=== PATIENT | female | born 1965 | race Hispanic/Latino ===

== ENCOUNTER 2017-02-23 14:32 | Inpatient (IN) | payer MEDICAID ==
[2017-02-23 14:56] VITALS: BMI 26.9
[2017-02-23] MEDS ORDERED: Sodium Chloride 0.9% 1,000 ML IV ONE (15:03)
--- NOTE | 2017-02-23 15:08 | C.PDOC ---
History Of Present Illness 52 y/o female presents to ED sent by Dr. Cao for complaints of chills, back and groin pain with associated nausea and vomiting. Patient could be in possible opiates withdrawal. Patient has had multiple surgeries and was in a medical marijuana program for a couple of weeks to help with pain but cannot afford it anymore. Patient denies chills, fever, dizziness or any other complaints at this time. Time Seen by Provider: 02/23/17 15:01 Chief Complaint (Nursing): Back Pain History Per: Patient History/Exam Limitations: no limitations Onset/Duration Of Symptoms: Hrs Current Symptoms Are (Timing): Still Present Past Medical History Reviewed: Historical Data, Nursing Documentation, Vital Signs - Medical History PMH: Anxiety, Arthritis, Asthma, Back Problems, Depression, Diabetes, Fractures , Gastritis, Hypothyroidism - [facility] Procedures COLONOSCOPY (05/07/15) ESOPHAGOGASTRODUODENOSCOPY [EGD] W/CLOSED BIOPSY (04/16/15) INDIVID PSYCHOTHERAP NEC (10/28/14) OCCUPATIONAL THERAPY (01/24/13) OTHER GROUP THERAPY (10/28/14) PHYSICAL THERAPY NEC (04/27/15) PSYCHIAT DRUG THERAP NEC (10/28/14) RESECTION OF GALLBLADDER, PERCUTANEOUS ENDOSCOPIC APPROACH (09/11/16) Family History: States: Unknown Family Hx - Social History Hx Tobacco Use: No Hx Alcohol Use: No Hx Substance Use: No - Immunization History Hx Tetanus Toxoid Vaccination: No Hx Influenza Vaccination: No Hx Pneumococcal Vaccination: No Review Of Systems Except As Marked, All Systems Reviewed And Found Negative. Constitutional: Negative for: Fever, Chills Gastrointestinal: Positive for: Nausea, Vomiting, Abdominal Pain. Negative for : Diarrhea Musculoskeletal: Positive for: Back Pain Neurological: Negative for: Dizziness Physical Exam - Physical Exam Appears: Non-toxic, Other (In pain but cooperative, in position) Skin: Normal Color, Warm Head: Atraumatic, Normacephalic Oral Mucosa: Moist Cardiovascular: Rhythm Regular, No Murmur Respiratory: Normal Breath Sounds, No Rales, No Rhonchi, No Wheezing Gastrointestinal/Abdominal: Soft, No Tenderness, No Guarding, No Rebound Neurological/Psych: Oriented x3 ED Course And Treatment O2 Sat by Pulse Oximetry: 100 (RA) Pulse Ox Interpretation: Normal Medical Decision Making Medical Decision Making: Case discussed with Dr. Cao and requested admission to his services Disposition Discussed With : Wallace Cao Jr. - Disposition Disposition: HOSPITALIZED Disposition Time: 15:06 Condition: GUARDED - POA Present On Arrival: None - Clinical Impression Clinical Impression: Low back strain, Chronic pain, Opioid dependence with withdrawal - Scribe Statement The provider has reviewed the documentation as recorded by the Gerberibannie Wheeler All medical record entries made by the Scribe were at my direction and personally dictated by me. I have reviewed the chart and agree that the record accurately reflects my personal performance of the history, physical exam, medical decision making, and the department course for this patient. I have also personally directed, reviewed, and agree with the discharge instructions and disposition. Decision To Admit - Pt Status Changed To: Hospital Disposition Of: Inpatient - Admit Certification Admit to Inpatient:: After my assessment, the patient will require hospitalization for at least two midnights. This is because of the severity of symptoms shown, intensity of services needed, and/or the medical risk in this patient being treated as an outpatient. - InPatient: Physician Admission Certification:: patient may need detox - . Bed Request Type: Regular Patient Diagnosis: Low back strain, Chronic pain, Opioid dependence with withdrawal
[2017-02-23] MEDS ORDERED: Sodium Chloride 0.9% 1,000 ML ONE (15:54)
[2017-02-23 16:00] LABS: BASO # 0.1 K/uL (0.0-0.2); BASO % 0.6 % (0.0-2.0); EOS % 0.5 % (0.0-4.0); HEMOGLOBIN 15.1 g/dL (11.0-16.0); LYMPH # 1.9 K/uL (1.0-4.3); LYMPH % 21.1 % (20.0-40.0); MEAN CORPUSCULAR HGB CONC 33.7 g/dL (33.0-37.0); MONO # 0.5 K/uL (0.0-0.8); MONO % 5.3 % (0.0-10.0); NEUT # 6.6 K/uL (1.8-7.0); NEUT % 72.5 % (50.0-75.0); RBC 5.02 Mil/uL (3.80-5.20); RED CELL DISTRIBUTION WIDTH 13.1 % (11.5-14.5); WHITE BLOOD COUNT 9.1 K/uL (4.8-10.8)
[2017-02-23 16:10] LABS: GFR AFRICAN-AMERICAN > 60; GFR NON-AFRICAN AMERICAN > 60
[2017-02-23 16:11] LABS: BLOOD UREA NITROGEN 20 mg/dL (7-17); CALCIUM 9.3 mg/dl (8.6-10.4)
[2017-02-23] MEDS ORDERED: HYDROmorphone 1 mg/ml ISec IVP PRN (16:18)
[2017-02-23 16:35] LABS: SQUAMOUS EPITHIAL 4 /hpf (0-5); URINE BACTERIA RARE (<OCC); URINE BILIRUBIN NEGATIVE (NEGATIVE); URINE BLOOD NEGATIVE (NEGATIVE); URINE CLARITY Hazy (Clear); URINE COLOR Amber (YELLOW); URINE GLUCOSE (UA) NORMAL (Normal); URINE LEUKOCYTE ESTERASE NEG Leu/uL (Negative); URINE NITRATE NEGATIVE (NEGATIVE); URINE PROTEIN 1+ mg/dL (NEGATIVE); URINE UROBILINOGEN NORMAL mg/dL (0.2-1.0)
--- NOTE | 2017-02-23 16:35 | CP.PCM.HP ---
History of Present Illness - History of Present Illness History of Present Illness: CC: "I'm in so much pain" HPI: Patient is a 52 year old female with PMHx of chronic pain who presents with complaint of intractable back pain. The patient experienced a fall several years ago and had to undergo multiple spinal surgeries in 2010 and 2011. Since then the patient has been on opiates as outpatient for management of her pain. The patient tried to stop taking her pain medication and applied for cannabis program which she started 3 weeks ago. At the same time the patient discontinued oral narcotics. While using the cannabis the patient states that her pain was very well controlled; however, the patient was unable to continue taking the cannabis due to its expensive cost ($250 per week.) The patient has been off all pain medication for the past week and is complaining of unmanageable pain which has disabled her. Patient states that her pain is located in her back and neck. The back pain is rated 10/10, starts at the left low back and radiates down her left leg. The neck pain is rated 10/10, starts at the base of her neck and radiates down her thoracic spine and anteriorly to her chest. The patient describes the pain as sharp and tingling. Patient has been taking Flexeril at home but states that the pain became unbearable today so she came to the ED. She currently complains of headache, dizziness, decreased appetite and diarrhea for 3 weeks since she stopped the opiates. Patient ambulates with assisting devices at home (cane and walker) at baseline. She has a homemaker who has been helping her. The patient denies fever, chills, nausea, vomiting, abdominal pain, chest pain, palpitations, tremors, cough, sick contacts, numbness, focal weakness, change in vision, and incontinence. PMD: [place] PMHx: Chronic back and neck pain Surgical Hx: Lap cholecystectomy 08/2016, Reconstruction of L-spine (2010), C- spine fusion of C2-6 (2011), Right rotator cuff repair, carpal tunnel sx bilateral wrists Family Hx: Mom- DM, Dad- CAD () Social Hx: Denies EtOH use, denies tobacco use, denies illicit drug use. Lives alone with homemaker to help. 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 Allergies: Lyrica (swelling) Present on Admission - Present on Admission Any Indicators Present on Admission: No Review of Systems - Constitutional Constitutional: As Per HPI. absent: Chills, Fatigue, Fever - EENT Eyes: As Per HPI. absent: Blurred Vision, Change in Vision Ears: As Per HPI. absent: Tinnitus Nose/Mouth/Throat: As Per HPI. absent: Sore Throat - Cardiovascular Cardiovascular: As Per HPI. absent: Chest Pain, Diaphoresis, Dyspnea, Lightheadedness, Palpitations - Respiratory Respiratory: As Per HPI. absent: Cough, Dyspnea, Wheezing, Chest Congestion - Gastrointestinal Gastrointestinal: As Per HPI, Change in Bowel Habits, Diarrhea. absent: Abdominal Pain, Bloating, Constipation, Heartburn, Nausea, Vomiting - Genitourinary Genitourinary: As Per HPI. absent: Change in Urinary Stream, Difficulty Urinating, Dysuria, Urinary Incontinence - Musculoskeletal Musculoskeletal: As Per HPI, Back Pain, Neck Pain - Integumentary Integumentary: As Per HPI - Neurological Neurological: As Per HPI, Headaches. absent: Abnormal Gait, Numbness, Focal Weakness, Weakness - Psychiatric Psychiatric: As Per HPI. absent: Anxiety, Depression - Endocrine Endocrine: As Per HPI. absent: Change in Body Appearance, Fatigue, Palpitations Past Patient History - Infectious Disease Hx of Infectious Diseases: None - Past Medical History & Family History Past Medical History?: Yes - Past Social History Smoking Status: Never Smoked - CARDIAC Hx Hypertension: No - PULMONARY Hx Asthma: Yes - NEUROLOGICAL Hx Seizures: No - HEENT Hx HEENT Problems: No - RENAL Hx Chronic Kidney Disease: No - ENDOCRINE/METABOLIC Hx Hypothyroidism: Yes - HEMATOLOGICAL/ONCOLOGICAL Hx Human Immunodeficiency Virus (HIV): No - INTEGUMENTARY Hx Dermatological Problems: No - MUSCULOSKELETAL/RHEUMATOLOGICAL Hx Arthritis: Yes Hx Fractures: Yes - GASTROINTESTINAL Hx Gastritis: Yes - GENITOURINARY/GYNECOLOGICAL Hx Sexually Transmitted Disorders: No - PSYCHIATRIC Hx Anxiety: Yes Hx Depression: Yes Hx Substance Use: No - SURGICAL HISTORY Hx Surgeries: Yes Hx Musculoskeletal Surgery: Yes (2 CERVICAL LUMBAR RECONSTRUCTION) Hx Orthopedic Surgery: Yes (RIGHT ROTATER CUFF SHOULDER; RUBI. CARPAL WILMER) - ANESTHESIA Hx Anesthesia: Yes Hx Anesthesia Reactions: No Hx Malignant Hyperthermia: No Meds Allergies/Adverse Reactions: Allergies Allergy/AdvReac Type Severity Reaction Status Date / Time pregabalin [From Lyrica] Allergy SWELLING Verified 02/23/17 14:54 Physical Exam - Constitutional Appears: Non-toxic, In Acute Distress (curled into position due to severe pain ) - Head Exam Head Exam: ATRAUMATIC, NORMOCEPHALIC - Eye Exam Eye Exam: EOMI, Normal appearance, PERRL Pupil Exam: NORMAL ACCOMODATION, PERRL - ENT Exam ENT Exam: Mucous Membranes Moist, Normal Exam - Neck Exam Neck exam: Positive for: Normal Inspection - Respiratory Exam Respiratory Exam: Clear to Auscultation Bilateral, NORMAL BREATHING PATTERN. absent: Accessory Muscle Use, Decreased Breath Sounds, Rales, Rhonchi, Wheezes, Respiratory Distress - Cardiovascular Exam Cardiovascular Exam: REGULAR RHYTHM, RRR, +S1, +S2. absent: Bradycardia, Tachycardia, Diastolic murmur, Irregular Rhythm, JVD, Systolic Murmur - GI/Abdominal Exam GI & Abdominal Exam: Normal Bowel Sounds, Soft. absent: Diminished Bowel Sounds , Distended, Firm, Guarding - Extremities Exam Extremities exam: Positive for: full ROM (pain with change of position ), normal inspection, pedal pulses present. Negative for: joint swelling, pedal edema, tenderness - Back Exam Back exam: paraspinal tenderness. absent: rash noted, vertebral tenderness - Neurological Exam Neurological exam: Alert, CN II-XII Intact, Oriented x3 - Psychiatric Exam Psychiatric exam: Normal Affect, Normal Mood Additional comments: Denies: suicidal ideations - Skin Skin Exam: Dry, Intact, Normal Color, Warm Results - Vital Signs Recent Vital Signs: Last Vital Signs Temp 98.7 F 02/23/17 15:38 Pulse 87 02/23/17 15:38 Resp 18 02/23/17 15:38 BP 132/50 L 02/23/17 15:38 Pulse Ox 100 02/23/17 15:45 - Labs Result Diagrams: 02/23/17 15:49 02/23/17 15:49 Labs: Laboratory Results - last 24 hr 02/23/17 02/23/17 15:49 15:49 WBC 9.1 RBC 5.02 Hgb 15.1 Hct 44.7 MCV 89.0 D MCH 30.0 MCHC 33.7 RDW 13.1 Plt Count 213 MPV 8.0 Neut % (Auto) 72.5 Lymph % (Auto) 21.1 Marshall % (Auto) 5.3 Eos % (Auto) 0.5 Baso % (Auto) 0.6 Neut # 6.6 Lymph # 1.9 Marshall # 0.5 Eos # 0.0 Baso # 0.1 Sodium 141 Potassium 5.0 Chloride 105 Carbon Dioxide 23 Anion Gap 18 BUN 20 H Creatinine 0.9 Est GFR ( Amer) > 60 Est GFR (Non-Af Amer) > 60 Random Glucose 88 Calcium 9.3 Assessment & Plan - Assessment and Plan (Free Text) Assessment: 1) Chronic intractable back and neck pain - Start Dilaudid 1mg IV q4h DIANE - Start Oxycodone 15mg PO q6h prn moderate pain for breakthrough - Start Valium 10mg PO q8h for anxiety - PT evaluation 2) Opioid use disorder - Consult Psychiatrist Dr Cordero for evaluation and treatment recommendations regarding opioid use disorder- will f/u recommendations - Clonidine 0.1mg PO BID (hold for SBP<90, HR<55) - Monitor for withdrawal symptoms - Zofran 4mg IV q6h prn nausea - IVF NS @75cc/hr for light hydration 3) Prophylactic measures - Lovenox 40mg SC daily - Protonix 40mg PO daily - SCDs
[2017-02-23 16:41] LABS: BARBITURATES, UR NEGATIVE (NEGATIVE); BENZODIAZEPINES, UR NEGATIVE (NEGATIVE)
[2017-02-23 16:44] LABS: OPIATES, UR NEGATIVE (NEGATIVE); PHENCYCLIDINE, UR NEGATIVE (NEGATIVE)
[2017-02-23] MEDS ORDERED: HYDROmorphone 1 mg/ml ISec IVP SCH (16:45)
[2017-02-23] MEDS: Sodium Chloride 0.9% 1,000 ML IV SCH (17:00)
[2017-02-23] MEDS ORDERED: oxyCODONE 5 mg Immediate Release Tab ONE (17:11)
[2017-02-23] MEDS: oxyCODONE 5 mg Immediate Release Tab PO PRN (17:15)
[2017-02-23] MEDS: HYDROmorphone 1 mg/ml ISec IVP PRN (22:42)
[2017-02-24] MEDS: Sodium Chloride 0.9% 1,000 ML IV SCH ×3 (04:30→18:55)
[2017-02-24] MEDS: HYDROmorphone 1 mg/ml ISec IVP PRN ×2 (05:40→14:52)
[2017-02-24 07:30] LABS: ALB/GLOB RATIO 1.3 (1.0-2.1); ALT/SGPT 26 U/L (9-52); AST/SGOT 26 U/L (14-36); BLOOD UREA NITROGEN 18 mg/dL (7-17); CALCIUM 8.9 mg/dl (8.6-10.4); GFR AFRICAN-AMERICAN > 60; GFR NON-AFRICAN AMERICAN > 60
[2017-02-24 07:35] LABS: BASO % 0.3 % (0.0-2.0); EOS % 0.2 % (0.0-4.0); HEMOGLOBIN 14.2 g/dL (11.0-16.0); LYMPH # 1.6 K/uL (1.0-4.3); MEAN CELL VOLUME 88.7 fL (81.0-99.0); MEAN CORPUSCULAR HEMOGLOBIN 29.9 pg (27.0-31.0); MEAN CORPUSCULAR HGB CONC 33.7 g/dL (33.0-37.0); MEAN PLATELET VOLUME 8.3 fL (7.2-11.7); MONO # 0.4 K/uL (0.0-0.8); MONO % 4.7 % (0.0-10.0); NEUT # 5.9 K/uL (1.8-7.0); NEUT % 74.8 % (50.0-75.0); RBC 4.73 Mil/uL (3.80-5.20); RED CELL DISTRIBUTION WIDTH 12.9 % (11.5-14.5); WHITE BLOOD COUNT 7.9 K/uL (4.8-10.8)
[2017-02-24] MEDS: Pantoprazole 40 mg EC Tab PO SCH (09:33)
[2017-02-24] MEDS: Enoxaparin 40 mg Syringe SC SCH (09:33)
--- NOTE | 2017-02-24 11:10 | CP.PCM.PN ---
<Lisa José - Last Filed: 02/24/17 17:33> Subjective - Date & Time of Evaluation Date of Evaluation: 02/24/17 Time of Evaluation: 07:45 - Subjective Subjective: PGY1- Medicine Note- Dr. Cao's Service Patient seen and examined at bedside this morning in no acute distress. Patient complained of chronic low back pain that radiates into both legs. Patient states this morning it is a 5/10. Patient said she had some episodes of vomiting overnight but did not see what color it was. Patient has no nausea or vomiting this morning. Patient also had diarrhea yesterday but none today. Patient denies chest pain, shortness of breath, abdominal pain. Objective - Vital Signs/Intake and Output Vital Signs (last 24 hours): Temp Pulse Resp BP Pulse Ox 97.9 F 70 20 127/75 97 02/24/17 07:50 02/24/17 07:50 02/24/17 07:50 02/24/17 07:50 02/24/17 07:50 Intake and Output: 02/24/17 02/24/17 06:59 18:59 Intake Total 1365 Balance 1365 - Medications Medications: Current Medications Clonidine HCl (Catapres) 0.1 mg PO BID [facility] Last Admin: 02/24/17 09:33 Dose: 0.1 mg Diazepam (Valium) 10 mg PO Q8H PRN PRN Reason: Anxiety Enoxaparin Sodium (Lovenox) 40 mg SC DAILY [facility] Last Admin: 02/24/17 09:33 Dose: 40 mg Hydromorphone HCl (Dilaudid) 1 mg IVP Q4H PRN PRN Reason: Pain, severe (8-10) Last Admin: 02/24/17 05:40 Dose: 1 mg Sodium Chloride (Sodium Chloride 0.9%) 1,000 mls @ 75 mls/hr IV .[id number] [facility] Last Admin: 02/24/17 04:30 Dose: 75 mls/hr Ondansetron HCl (Zofran Inj) 4 mg IVP Q6 PRN PRN Reason: Nausea/Vomiting Last Admin: 02/24/17 00:25 Dose: 4 mg Oxycodone HCl (Oxycodone Immediate Release Tab) 15 mg PO Q6 PRN PRN Reason: Pain, moderate (4-7) Last Admin: 02/23/17 17:15 Dose: 15 mg Pantoprazole Sodium (Protonix Ec Tab) 40 mg PO DAILY [facility]ANE Last Admin: 02/24/17 09:33 Dose: 40 mg Pneumococcal Polyvalent Vaccine (Pneumovax 23 Vaccine) 0.5 ml IM .ONCE ONE Stop: 02/25/17 10:01 - Labs Labs: 02/24/17 07:00 02/24/17 07:00 - Constitutional Appears: Non-toxic, No Acute Distress - Head Exam Head Exam: ATRAUMATIC, NORMAL INSPECTION, NORMOCEPHALIC - Eye Exam Eye Exam: EOMI, Normal appearance, PERRL - ENT Exam ENT Exam: Mucous Membranes Moist, Normal Exam - Respiratory Exam Respiratory Exam: Clear to Ausculation Bilateral, NORMAL BREATHING PATTERN - Cardiovascular Exam Cardiovascular Exam: REGULAR RHYTHM, RRR, +S1, +S2. absent: Gallop, Rubs, Murmur - GI/Abdominal Exam GI & Abdominal Exam: Soft, Normal Bowel Sounds. absent: Distended, Firm, Guarding, Rigid - Extremities Exam Extremities Exam: Full ROM, Normal Inspection. absent: Pedal Edema - Back Exam Back Exam: paraspinal tenderness. absent: NORMAL INSPECTION Additional comments: midline scar, pain that radiates from center of back down into buttocks and legs - Neurological Exam Neurological Exam: Alert, Awake, Oriented x3 - Psychiatric Exam Psychiatric exam: Normal Affect, Normal Mood - Skin Skin Exam: Intact, Normal Color, Warm Assessment and Plan - Assessment and Plan (Free Text) Assessment: 1) Chronic intractable back and neck pain - D/C Dilaudid 1mg IV q4h DIANE -Compazine 10 mg once - Start Oxycodone 15mg PO q6h prn moderate pain for breakthrough - Start Valium 10mg PO q8h for anxiety - PT evaluation 2) Opioid use disorder - Consult Psychiatrist Dr oCrdero for evaluation and treatment recommendations regarding opioid use disorder- will f/u recommendations - Clonidine 0.1mg PO BID (hold for SBP<90, HR<55) - Monitor for withdrawal symptoms - Zofran 4mg IV q6h prn nausea - IVF NS @75cc/hr for light hydration 3) Prophylactic measures - Lovenox 40mg SC daily - Protonix 40mg PO daily - SCDs <Wallace Cao Jr. - Last Filed: 02/25/17 10:28> Objective - Vital Signs/Intake and Output Vital Signs (last 24 hours): Temp Pulse Resp BP Pulse Ox 97.5 F L 85 20 137/59 L 99 02/25/17 08:00 02/25/17 08:00 02/25/17 08:00 02/25/17 08:00 02/25/17 08:00 Intake and Output: 02/25/17 02/25/17 06:59 18:59 Intake Total 1200 Balance 1200 - Medications Medications: Current Medications Clonidine HCl (Catapres) 0.1 mg PO BID [facility] Last Admin: 02/25/17 09:17 Dose: 0.1 mg Cyclobenzaprine HCl (Flexeril) 10 mg PO TID [facility] Last Admin: 02/25/17 09:17 Dose: 10 mg Diazepam (Valium) 10 mg PO Q8H PRN PRN Reason: Anxiety Last Admin: 02/25/17 09:15 Dose: 10 mg Enoxaparin Sodium (Lovenox) 40 mg SC DAILY [facility] Last Admin: 02/25/17 09:17 Dose: 40 mg Hydroxyzine HCl (Atarax) 25 mg PO Q6 PRN PRN Reason: Agitation Sodium Chloride (Sodium Chloride 0.9%) 1,000 mls @ 75 mls/hr IV .[id number] [facility] Last Admin: 02/25/17 07:15 Dose: 75 mls/hr Ondansetron HCl (Zofran Inj) 4 mg IVP Q6 PRN PRN Reason: Nausea/Vomiting Last Admin: 02/24/17 16:07 Dose: 4 mg Oxycodone HCl (Oxycodone Immediate Release Tab) 15 mg PO Q6 PRN PRN Reason: Pain, moderate (4-7) Last Admin: 02/25/17 09:15 Dose: 15 mg Pantoprazole Sodium (Protonix Ec Tab) 40 mg PO DAILY [facility] Last Admin: 02/25/17 09:16 Dose: 40 mg Pantoprazole Sodium (Protonix Ec Tab) 40 mg PO DAILY [facility] Last Admin: 02/25/17 09:20 Dose: 40 mg Prochlorperazine (Compazine) 10 mg PO TID [facility] Quetiapine Fumarate (Seroquel) 100 mg PO HS [facility] Last Admin: 02/24/17 21:53 Dose: 100 mg - Labs Labs: 07/15/17 07:11 02/25/17 07:11 Attending/Attestation - Attestation I have personally seen and examined this patient.: Yes I have fully participated in the care of the patient.: Yes I have reviewed all pertinent clinical information, including history, physical exam and plan: Yes Notes (Text): 02/25/17 10:28 Agree with resident note and findings
--- NOTE | 2017-02-24 16:47 | PCM.PSYCH ---
Initial Psychiatric Evaluation - Initial Psychiatric Evaluation Type of Admission: Voluntary Legal Status: Capacity Chief Complaint (in patient's own words): 'I am feeling depressed and anxious' History of Present Illness and Precipitating Events: Patient is a 52-year-old female, who lives alone and is on disability, came to the hospital yesterday for chills, and back pain. We were consulted due to her depressed, and anxious mood, and for possible opiate withdrawal. Patient states that she was feeling depressed, and anxious yesterday. She reports of nausea, sweating, chills, diarrhea, and feeling dehydrated. Patient states that she was using fentanyl patches for back pain, but stopped. She also reports of using medical marijuana in edible form for pain. Patient reports irritable and depressed mood abut denies any suicidal ideations. Patient denies any hallucinations, or delusions. She denies abusing any other substances. Patient reports of previous suicide attempt by slitting her wrists 10 years ago. She states she was hospitalized in psychiatric unit a few years ago for depression. PMH Back pain Current Medications: Active Medications Generic Name Dose Route Start Last Admin Trade Name Freq PRN Reason Stop Dose Admin Clonidine HCl 0.1 mg 02/23/17 18:00 02/24/17 09:33 Catapres PO 0.1 mg BID DIANE Administration Diazepam 10 mg 02/23/17 16:18 Valium PO Q8H PRN Anxiety Enoxaparin Sodium 40 mg 02/24/17 10:00 02/24/17 09:33 Lovenox SC 40 mg DAILY DIANE Administration Hydromorphone HCl 1 mg 02/23/17 16:51 02/24/17 14:52 Dilaudid IVP 1 mg Q4H PRN Administration Pain, severe (8-10) Sodium Chloride 1,000 mls @ 75 mls/hr 02/23/17 16:15 02/24/17 14:57 Sodium Chloride 0.9% IV 75 mls/hr .[id number] DIANE Administration Ondansetron HCl 4 mg 02/23/17 16:08 02/24/17 16:07 Zofran Inj IVP 4 mg Q6 PRN Administration Nausea/Vomiting Oxycodone HCl 15 mg 02/23/17 16:18 02/23/17 17:15 Oxycodone Immediate Release Tab PO 15 mg Q6 PRN Administration Pain, moderate (4-7) Pantoprazole Sodium 40 mg 02/24/17 10:00 02/24/17 09:33 Protonix Ec Tab PO 40 mg DAILY DIANE Administration Pneumococcal Polyvalent Vaccine 0.5 ml 02/25/17 10:00 Pneumovax 23 Vaccine IM 02/25/17 10:01 .ONCE ONE Past Psychiatric History - Past Psychiatric History Previous Treatment History: Inpatient Pertinent Medical Hx (Current Medical&Sleep Prob, Allergies): Allergies Allergy/AdvReac Type Severity Reaction Status Date / Time pregabalin [From Lyrica] Allergy SWELLING Verified 02/23/17 14:54 Omeprazole Magnesium [Prilosec Otc] 40 mg PO DAILY 09/11/16 Oxycodone HCl [Roxicodone] 30 mg PO Q6 PRN 09/11/16 fentaNYL 100mcg/hr [Duragesic Patch 100mcg/hr] 100 mcg TD Q3D 09/11/16 fentaNYL 25 mcg/hr [Duragesic Patch 25 mcg/hr] 25 mcg TD Q3D 09/11/16 Cyclobenzaprine [Cyclobenzaprine HCl] 10 mg PO TID 02/23/17 Review of Systems - Review of Systems All systems: reviewed and no additional remarkable complaints except - Constitutional Constitutional: Chills, Sweats, Weakness - Psychiatric Psychiatric: Anxiety, Depression, Irritability Mental Status Examination - Personal Presentation Personal Presentation: Looks stated age - Affect Affect: Constricted, Depressed - Motor Activity Motor Activity: Calm - Reliability in Providing Information Reliability in Providing Information: Good - Speech Speech: Organized, Relevant - Mood Mood: Depressed, Anxious - Formal Thought Process Formal Thought Process: No Impairment - Cognitive Functions Orientation: Person, Place, Situation, Time Sensorium: Alert Attention/Concentration: Attentive Abstract Thinking: [place] Estimate of Intelligence: Below average Judgement: Imparied, as evidence by: Poor judgement, Intact, as evidence by: Insight regarding need for hospitalization - Risk Risk: Withdrawal, Diminished functioning - Strength & Assets Inventory Strength & Assets Inventory: Cooperative - Limitations Limitations: Living alone DSM 5 DX - DSM 5 DSM 5 Diagnosis: Opioid use disorder severe Opioid withdrawal Bipolar disorder depressed moderate - Recommended/Plan of Treatment Treatment Recommendations and Plan of Treatment: Opioid use disorder severe Opioid withdrawal CBT Psychoeducation Supportive therapy, individual therapy Use LA for abstinence Clonidine when necessary Bipolar disorder depressed moderate CBT Psychoeducation Supportive therapy, group therapy, individual therapy Seroquel 100 mg by mouth daily at bedtime Atarax 25 mg PO Q6 hr prn - Smoking Cessation Smoking Cessation Initiated: No
[2017-02-24] MEDS: oxyCODONE 5 mg Immediate Release Tab PO PRN (23:08)
[2017-02-25] MEDS: Sodium Chloride 0.9% 1,000 ML IV SCH (07:15)
[2017-02-25 07:21] LABS: BASO # 0.1 K/uL (0.0-0.2); BASO % 1.1 % (0.0-2.0); EOS # 0.2 K/uL (0.0-0.7); EOS % 2.5 % (0.0-4.0); HEMOGLOBIN 13.3 g/dL (11.0-16.0); LYMPH % 29.8 % (20.0-40.0); MEAN CELL VOLUME 88.9 fL (81.0-99.0); MEAN CORPUSCULAR HEMOGLOBIN 30.3 pg (27.0-31.0); MEAN CORPUSCULAR HGB CONC 34.2 g/dL (33.0-37.0); MEAN PLATELET VOLUME 8.1 fL (7.2-11.7); MONO # 0.5 K/uL (0.0-0.8); MONO % 7.9 % (0.0-10.0); NEUT # 3.9 K/uL (1.8-7.0); NEUT % 58.7 % (50.0-75.0); RBC 4.37 Mil/uL (3.80-5.20); RED CELL DISTRIBUTION WIDTH 12.8 % (11.5-14.5); WHITE BLOOD COUNT 6.7 K/uL (4.8-10.8)
[2017-02-25 07:26] LABS: ALBUMIN 3.4 g/dL (3.5-5.0)
[2017-02-25 07:29] LABS: ALB/GLOB RATIO 1.3 (1.0-2.1); ALT/SGPT 44 U/L (9-52); AST/SGOT 54 U/L (14-36); BLOOD UREA NITROGEN 12 mg/dL (7-17); GFR AFRICAN-AMERICAN > 60; GFR NON-AFRICAN AMERICAN > 60
[2017-02-25 07:30] LABS: CALCIUM 8.7 mg/dl (8.6-10.4)
--- NOTE | 2017-02-25 08:03 | CP.PCM.PN ---
Subjective - Date & Time of Evaluation Date of Evaluation: 02/25/17 Time of Evaluation: 10:12 - Subjective Subjective: PGY 2 Medicine Note- Dr. Cao's service Pt seen and examined in no acute distress. Patient had to be roused from sleep. She states that her pain is improved. She is tolerating a diet. She denies headaches, chest pain, nausea, vomiting, diarrhea or paresthesias at this time. Objective - Vital Signs/Intake and Output Vital Signs (last 24 hours): Temp Pulse Resp BP Pulse Ox 97.8 F 104 H 20 102/72 96 02/25/17 00:00 02/25/17 00:00 02/25/17 00:00 02/25/17 00:00 02/25/17 00:00 Intake and Output: 02/25/17 02/25/17 06:59 18:59 Intake Total 1200 Balance 1200 - Medications Medications: Current Medications Clonidine HCl (Catapres) 0.1 mg PO BID [facility] Last Admin: 02/24/17 17:56 Dose: 0.1 mg Cyclobenzaprine HCl (Flexeril) 10 mg PO TID [facility] Last Admin: 02/24/17 18:28 Dose: 10 mg Diazepam (Valium) 10 mg PO Q8H PRN PRN Reason: Anxiety Enoxaparin Sodium (Lovenox) 40 mg SC DAILY [facility] Last Admin: 02/24/17 09:33 Dose: 40 mg Hydroxyzine HCl (Atarax) 25 mg PO Q6 PRN PRN Reason: Agitation Sodium Chloride (Sodium Chloride 0.9%) 1,000 mls @ 75 mls/hr IV .[id number] [facility] Last Admin: 02/25/17 07:15 Dose: 75 mls/hr Ondansetron HCl (Zofran Inj) 4 mg IVP Q6 PRN PRN Reason: Nausea/Vomiting Last Admin: 02/24/17 16:07 Dose: 4 mg Oxycodone HCl (Oxycodone Immediate Release Tab) 15 mg PO Q6 PRN PRN Reason: Pain, moderate (4-7) Last Admin: 02/24/17 23:08 Dose: 15 mg Pantoprazole Sodium (Protonix Ec Tab) 40 mg PO DAILY [facility] Last Admin: 02/24/17 09:33 Dose: 40 mg Pantoprazole Sodium (Protonix Ec Tab) 40 mg PO DAILY [facility] Pneumococcal Polyvalent Vaccine (Pneumovax 23 Vaccine) 0.5 ml IM .ONCE ONE Stop: 02/25/17 10:01 Prochlorperazine (Compazine) 10 mg PO TID [facility] Quetiapine Fumarate (Seroquel) 100 mg PO HS [facility] Last Admin: 02/24/17 21:53 Dose: 100 mg - Labs Labs: 02/25/17 07:11 02/25/17 07:11 - Constitutional Appears: Non-toxic, No Acute Distress - Head Exam Head Exam: ATRAUMATIC, NORMAL INSPECTION, NORMOCEPHALIC - Eye Exam Eye Exam: EOMI, Normal appearance, PERRL Pupil Exam: NORMAL ACCOMODATION - ENT Exam ENT Exam: Mucous Membranes Moist - Neck Exam Neck Exam: Full ROM - Respiratory Exam Respiratory Exam: NORMAL BREATHING PATTERN. absent: Wheezes - Cardiovascular Exam Cardiovascular Exam: +S1, +S2 - GI/Abdominal Exam GI & Abdominal Exam: Soft, Normal Bowel Sounds - Extremities Exam Extremities Exam: Full ROM - Back Exam Back Exam: tenderness - Neurological Exam Neurological Exam: Alert, Awake, Oriented x3 - Psychiatric Exam Psychiatric exam: Normal Affect, Normal Mood - Skin Skin Exam: Dry, Intact, Normal Color, Warm Assessment and Plan - Assessment and Plan (Free Text) Assessment: 1) Chronic intractable back and neck pain - Start Oxycodone 15mg PO q6h prn moderate pain for breakthrough - Start Valium 10mg PO q8h PRN for anxiety -Flexeril 10 mg PO TID - PT evaluation- patient would benefit from rolling walker and TCU services 2) Opioid use disorder - Consult Psychiatrist Dr Cordero for evaluation and treatment recommendations regarding opioid use disorder- will f/u recommendations - Clonidine 0.1mg PO BID (hold for SBP<90, HR<55) - Monitor for withdrawal symptoms - Zofran 4mg IV q6h prn nausea - IVF NS @75cc/hr for light hydration -Continued medication management per psych 3) Prophylactic measures - Lovenox 40mg SC daily - Protonix 40mg PO daily - SCDs
[2017-02-25] MEDS: oxyCODONE 5 mg Immediate Release Tab PO PRN ×3 (09:15→22:03)
[2017-02-25] MEDS: Pantoprazole 40 mg EC Tab PO SCH ×2 (09:16→09:20)
[2017-02-25] MEDS: Enoxaparin 40 mg Syringe SC SCH (09:17)
[2017-02-25] MEDS ORDERED: Pneumococcal 23-Valent Vaccine IM ONE (10:00)
[2017-02-26] MEDS: Sodium Chloride 0.9% 1,000 ML IV SCH ×3 (03:20→15:32)
[2017-02-26] MEDS: oxyCODONE 5 mg Immediate Release Tab PO PRN ×3 (06:38→21:18)
[2017-02-26 08:01] LABS: BASO % 0.8 % (0.0-2.0); EOS # 0.2 K/uL (0.0-0.7); EOS % 3.1 % (0.0-4.0); LYMPH # 2.2 K/uL (1.0-4.3); MEAN CELL VOLUME 89.8 fL (81.0-99.0); MEAN CORPUSCULAR HEMOGLOBIN 30.4 pg (27.0-31.0); MEAN CORPUSCULAR HGB CONC 33.9 g/dL (33.0-37.0); MEAN PLATELET VOLUME 8.2 fL (7.2-11.7); MONO # 0.5 K/uL (0.0-0.8); MONO % 8.1 % (0.0-10.0); NEUT # 2.7 K/uL (1.8-7.0); RBC 4.27 Mil/uL (3.80-5.20); RED CELL DISTRIBUTION WIDTH 12.9 % (11.5-14.5); WHITE BLOOD COUNT 5.6 K/uL (4.8-10.8)
[2017-02-26 08:27] LABS: ALBUMIN 3.2 g/dL (3.5-5.0)
[2017-02-26 08:30] LABS: ALB/GLOB RATIO 1.2 (1.0-2.1); ALT/SGPT 42 U/L (9-52); AST/SGOT 31 U/L (14-36); BLOOD UREA NITROGEN 10 mg/dL (7-17); GFR AFRICAN-AMERICAN > 60; GFR NON-AFRICAN AMERICAN > 60
[2017-02-26 08:31] LABS: CALCIUM 8.6 mg/dl (8.6-10.4); MAGNESIUM 1.8 mg/dL (1.6-2.3)
[2017-02-26] MEDS: Pantoprazole 40 mg EC Tab PO SCH ×2 (10:15→10:16)
[2017-02-26] MEDS: Enoxaparin 40 mg Syringe SC SCH (10:16)
--- NOTE | 2017-02-26 12:25 | CP.PCM.PN ---
Subjective - Date & Time of Evaluation Date of Evaluation: 02/26/17 Time of Evaluation: 09:48 - Subjective Subjective: PGY 2 Medicine Note- Dr. Cao's service Pt seen and examined in no acute distress. Patient states that it is too noisy in her room. She feels anxious. She states that her pain is improved. She is tolerating a diet. She denies headaches, visual disturbances, chest pain, nausea , vomiting, diarrhea, constipation or paresthesias at this time. Objective - Vital Signs/Intake and Output Vital Signs (last 24 hours): Temp Pulse Resp BP Pulse Ox 97.3 F L 78 20 104/57 L 98 02/26/17 08:23 02/26/17 08:23 02/26/17 08:23 02/26/17 08:23 02/26/17 08:23 Intake and Output: 02/26/17 02/26/17 06:59 18:59 Intake Total 1350 Balance 1350 - Medications Medications: Current Medications Clonidine HCl (Catapres) 0.1 mg PO BID [facility] Last Admin: 02/26/17 09:11 Dose: Not Given Cyclobenzaprine HCl (Flexeril) 10 mg PO TID [facility] Last Admin: 02/26/17 10:16 Dose: 10 mg Diazepam (Valium) 10 mg PO Q8H PRN PRN Reason: Anxiety Last Admin: 02/26/17 10:13 Dose: 10 mg Enoxaparin Sodium (Lovenox) 40 mg SC DAILY [facility] Last Admin: 02/26/17 10:16 Dose: 40 mg Hydroxyzine HCl (Atarax) 25 mg PO Q6 PRN PRN Reason: Agitation Sodium Chloride (Sodium Chloride 0.9%) 1,000 mls @ 75 mls/hr IV .[id number] [facility] Last Admin: 02/26/17 03:20 Dose: 75 mls/hr Ondansetron HCl (Zofran Inj) 4 mg IVP Q6 PRN PRN Reason: Nausea/Vomiting Last Admin: 02/24/17 16:07 Dose: 4 mg Oxycodone HCl (Oxycodone Immediate Release Tab) 15 mg PO Q6 PRN PRN Reason: Pain, moderate (4-7) Last Admin: 02/26/17 06:38 Dose: 15 mg Pantoprazole Sodium (Protonix Ec Tab) 40 mg PO DAILY [facility] Last Admin: 02/26/17 10:16 Dose: 40 mg Pantoprazole Sodium (Protonix Ec Tab) 40 mg PO DAILY [facility] Last Admin: 02/25/17 09:20 Dose: 40 mg Prochlorperazine (Compazine) 10 mg PO TID [facility] Last Admin: 02/25/17 19:58 Dose: 10 mg Quetiapine Fumarate (Seroquel) 100 mg PO HS [facility] Last Admin: 02/25/17 22:01 Dose: 100 mg - Labs Labs: 02/26/17 07:53 02/26/17 07:53 - Constitutional Appears: Non-toxic, No Acute Distress - Head Exam Head Exam: ATRAUMATIC, NORMAL INSPECTION, NORMOCEPHALIC - Eye Exam Eye Exam: EOMI, Normal appearance, PERRL Pupil Exam: NORMAL ACCOMODATION, PERRL - ENT Exam ENT Exam: Mucous Membranes Moist - Neck Exam Neck Exam: Full ROM - Respiratory Exam Respiratory Exam: NORMAL BREATHING PATTERN. absent: Wheezes - Cardiovascular Exam Cardiovascular Exam: +S1, +S2 - GI/Abdominal Exam GI & Abdominal Exam: Soft, Normal Bowel Sounds. absent: Tenderness - Extremities Exam Extremities Exam: Full ROM, Normal Capillary Refill - Back Exam Back Exam: Full ROM - Neurological Exam Neurological Exam: Alert, Awake, Oriented x3 - Psychiatric Exam Psychiatric exam: Anxious, Normal Affect, Normal Mood - Skin Skin Exam: Intact, Normal Color, Warm Assessment and Plan - Assessment and Plan (Free Text) Assessment: Chronic intractable back and neck pain - Oxycodone 15mg PO q6h prn moderate pain for breakthrough - Flexeril 10 mg PO TID - PT evaluation- patient would benefit from rolling walker and TCU services Opioid use disorder - Consult Psychiatrist Dr Cordero for evaluation and treatment recommendations regarding opioid use disorder- will f/u recommendations - Clonidine 0.1mg PO BID (hold for SBP<90, HR<55) - Monitor for withdrawal symptoms - Zofran 4mg IV q6h prn nausea - IVF NS @75cc/hr for light hydration -Continued medication management per psych Anxiety -Valium 10mg PO q8h PRN for anxiety Prophylactic measures - Lovenox 40mg SC daily - Protonix 40mg PO daily - SCDs
[2017-02-26 23:24] VITALS: RESP 20
[2017-02-27] MEDS: Sodium Chloride 0.9% 1,000 ML IV SCH ×2 (00:33→13:22)
[2017-02-27] MEDS: oxyCODONE 5 mg Immediate Release Tab PO PRN ×2 (06:08→13:18)
[2017-02-27 06:56] LABS: BASO % 0.6 % (0.0-2.0); EOS # 0.1 K/uL (0.0-0.7); EOS % 2.7 % (0.0-4.0); HEMOGLOBIN 12.5 g/dL (11.0-16.0); LYMPH # 2.1 K/uL (1.0-4.3); LYMPH % 39.8 % (20.0-40.0); MEAN CELL VOLUME 88.6 fL (81.0-99.0); MEAN CORPUSCULAR HEMOGLOBIN 30.2 pg (27.0-31.0); MEAN CORPUSCULAR HGB CONC 34.1 g/dL (33.0-37.0); MEAN PLATELET VOLUME 8.1 fL (7.2-11.7); MONO # 0.4 K/uL (0.0-0.8); NEUT # 2.6 K/uL (1.8-7.0); NEUT % 48.9 % (50.0-75.0); NRBC % 0.1 % (0.0-2.0); RBC 4.14 Mil/uL (3.80-5.20); WHITE BLOOD COUNT 5.4 K/uL (4.8-10.8)
--- NOTE | 2017-02-27 07:09 | CP.PCM.PN ---
Subjective - Date & Time of Evaluation Date of Evaluation: 02/27/17 Time of Evaluation: 07:08 - Subjective Subjective: PGY-[address] Cao Patient seen and examined at bedside, found in no acute distress. Patient states that pain is moderately controlled with medication at a 5/10 for neck pain and right shoulder pain that radiates anteriorly to chest and 6/10 back pain. Patient c/o continued cramping and shooting pain down glutes and anterior legs as well as cramping in bottom of both feet. Patient reports dyspnea, palpitations and pins/needles sensation in both feet upon walking. Patient continues to c/o lack of appetite, as well as constipation, with last BM reported to be . Patient denies chest pain, shortness of breath, abdominal pain, n/v/d, fever, chills or cough. Objective - Vital Signs/Intake and Output Vital Signs (last 24 hours): Temp Pulse Resp BP Pulse Ox 97.7 F 75 20 109/71 95 02/26/17 23:22 02/26/17 23:22 02/26/17 23:22 02/26/17 23:22 02/26/17 23:22 Intake and Output: 02/27/17 02/27/17 06:59 18:59 Intake Total 1800 Balance 1800 - Medications Medications: Current Medications Clonidine HCl (Catapres) 0.1 mg PO BID [facility] Last Admin: 02/26/17 17:56 Dose: 0.1 mg Cyclobenzaprine HCl (Flexeril) 10 mg PO TID [facility] Last Admin: 02/26/17 17:56 Dose: 10 mg Diazepam (Valium) 10 mg PO Q8H PRN PRN Reason: Anxiety Last Admin: 02/26/17 10:13 Dose: 10 mg Docusate Sodium (Colace) 100 mg PO BID [facility] Last Admin: 02/27/17 01:29 Dose: 100 mg Enoxaparin Sodium (Lovenox) 40 mg SC DAILY [facility] Last Admin: 02/26/17 10:16 Dose: 40 mg Hydroxyzine HCl (Atarax) 25 mg PO Q6 PRN PRN Reason: Agitation Sodium Chloride (Sodium Chloride 0.9%) 1,000 mls @ 75 mls/hr IV .[id number] [facility] Last Admin: 02/27/17 00:33 Dose: 75 mls/hr Ondansetron HCl (Zofran Inj) 4 mg IVP Q6 PRN PRN Reason: Nausea/Vomiting Last Admin: 02/24/17 16:07 Dose: 4 mg Oxycodone HCl (Oxycodone Immediate Release Tab) 15 mg PO Q6 PRN PRN Reason: Pain, moderate (4-7) Last Admin: 02/27/17 06:08 Dose: 15 mg Pantoprazole Sodium (Protonix Ec Tab) 40 mg PO DAILY [facility] Last Admin: 02/26/17 10:16 Dose: 40 mg Pantoprazole Sodium (Protonix Ec Tab) 40 mg PO DAILY [facility] Last Admin: 02/26/17 10:15 Dose: 40 mg Prochlorperazine (Compazine) 10 mg PO TID [facility] Last Admin: 02/26/17 17:56 Dose: 10 mg Quetiapine Fumarate (Seroquel) 100 mg PO HS [facility] Last Admin: 02/26/17 21:18 Dose: 100 mg - Labs Labs: 02/26/17 07:53 02/26/17 07:53 - Constitutional Appears: Non-toxic, No Acute Distress - Head Exam Head Exam: ATRAUMATIC, NORMOCEPHALIC - Eye Exam Eye Exam: EOMI, Normal appearance Pupil Exam: PERRL - ENT Exam ENT Exam: Mucous Membranes Moist - Neck Exam Neck Exam: Full ROM - Respiratory Exam Respiratory Exam: Clear to Ausculation Bilateral, NORMAL BREATHING PATTERN. absent: Rales, Rhonchi, Wheezes - Cardiovascular Exam Cardiovascular Exam: REGULAR RHYTHM, +S1, +S2 - GI/Abdominal Exam GI & Abdominal Exam: Soft, Normal Bowel Sounds. absent: Tenderness - Extremities Exam Extremities Exam: Normal Inspection Additional comments: shooting pain from sacrum to legs, not worse with palpation - Back Exam Back Exam: paraspinal tenderness Additional comments: pain worse in lumbar region surgical scars noted at c-spine fusion sites - Neurological Exam Neurological Exam: Alert, Awake, Oriented x3 - Psychiatric Exam Psychiatric exam: Anxious - Skin Skin Exam: Normal Color, Warm Assessment and Plan - Assessment and Plan (Free Text) Plan: Chronic intractable back and neck pain Consult: Nida Suarez Recommendations: - Start Neurontin 100mg PO TID - Start Oxycontin 30mg PO Q12H - Start Percocet 5/325mg (2 tab) Q4h PRN for breakthrough - Discontinue Flexeril 10 mg PO TID - Decrease Valium to 5mg Q8H PRN - PT evaluation- patient would benefit from rolling walker and TCU service Regimen approved by Dr. Cao Opioid use disorder - Consult Psychiatrist Dr Cordero for evaluation and treatment recommendations regarding opioid use disorder- will f/u recommendations - Clonidine 0.1mg PO BID (hold for SBP<90, HR<55) - Monitor for withdrawal symptoms - Zofran 4mg IV q6h prn nausea - IVF NS @75cc/hr for light hydration -Continued medication management per psych Anxiety -Decrease Valium to 5mg PO q8h PRN for anxiety as reccomendation per pain mgmt Prophylactic measures - Lovenox 40mg SC daily - Protonix 40mg PO daily - SCDs Discussed case with Dr. Nash Horta, PGY-1
[2017-02-27 07:17] LABS: ALB/GLOB RATIO 1.2 (1.0-2.1); ALBUMIN 3.2 g/dL (3.5-5.0); ALT/SGPT 32 U/L (9-52); AST/SGOT 22 U/L (14-36); BLOOD UREA NITROGEN 11 mg/dL (7-17); CALCIUM 8.4 mg/dl (8.6-10.4); GFR AFRICAN-AMERICAN > 60; GFR NON-AFRICAN AMERICAN > 60; MAGNESIUM 1.7 mg/dL (1.6-2.3)
[2017-02-27] MEDS: Enoxaparin 40 mg Syringe SC SCH (09:37)
[2017-02-27] MEDS: Pantoprazole 40 mg EC Tab PO SCH ×2 (09:38→09:41)
[2017-02-27] MEDS ORDERED: Magnesium Sulfate 1 gm in D5W 1 GM/100 ML BAG IVPB ONE (09:57)
[2017-02-27] MEDS ORDERED: Potassium Chloride 20 mEq ER Tab PO SCH (10:00)
--- NOTE | 2017-02-27 16:07 | CP.PCM.CON ---
History of Present Illness - History of Present Illness History of Present Illness: Palliative consult Requested by Mychal LEI Reason; chronic pain managemnt Patient is a 52 yo female admitted to ED with symptoms of chills, nausea, vomiting, back and groins pain. Patient has a chronic lower back pain and was treated at home with Fentanyl patch and Oxycodone, what was tried to be tapered down by patient's PMD as patient wanted to try other means of pain management besides the opioids. Patient signed up for a cannabis therapy and was on medical Mariuanna 3 weeks ago for about a week. As per patient, she was not able to afford the perez of it. In ED the impression was that patient was in opioid withdrawal. Oxycodone IR, Valium and Flexeril ordered for the pain management. Palliative consult was called to assist in establishing the skilled nursing pain regimen for improved comfort and functionality. PMH: intractable back pain, multiple sinal Sxs, L-spine reconstruction, C-spine fusion, Right rotator cuff repair Soc. Hx: single, on disability, worked as security site supervisor, lives at home with home sales consultant, ister and mother involved in care Fam. Hx: patient denies significant family Hx Review of Systems - Review of Systems All systems: reviewed and no additional remarkable complaints except - Constitutional Constitutional: absent: As Per HPI, Anorexia, Chills, Daytime Sleepiness, Excessive Sweating, Fatigue, Fever, Frequent Falls, Headache, Increased Appetite , Lethargy, Malaise, Night Sweats, Snoring, Sleep Apnea, Weight Gain, Weight Loss, Weakness, Other - EENT Eyes: absent: As Per HPI, Blind Spots, Blurred Vision, Change in Vision, Decreased Night Vision, Diplopia, Discharge, Dry Eye, Exophthalmos, Floaters, Irritation, Itchy Eyes, Loss of Peripheral Vision, Pain, Photophobia, Requires Corrective Lenses, Sees Flashes, Spots in Vision, Tunnel Vision, Other Visual Disturbances, Loss of Vision, Other Ears: absent: As Per HPI, Decreased Hearing, Ear Discharge, Ear Pain, Tinnitus, Abnormal Hearing, Disequilibrium, Dizziness, Other Nose/Mouth/Throat: absent: As Per HPI, Epistaxis, Nasal Congestion, Nasal Discharge, Nasal Obstruction, Nasal Trauma, Nose Pain, Post Nasal Drip, Sinus Pain, Sinus Pressure, Bleeding Gums, Change in Voice, Dental Pain, Dry Mouth, Dysphagia, Halitosis, Hoarsness, Lip Swelling, Mouth Lesions, Mouth Pain, Odynophagia, Sore Throat, Throat Swelling, Tongue Swelling, Facial Pain, Neck Pain, Neck Mass, Other - Breasts Breasts: absent: As Per HPI, Change in Shape, Mass, Pain, Nipple Discharge, Nipple Inversion, Skin Changes, Swelling, Other - Cardiovascular Cardiovascular: absent: As Per HPI, Acrocyanosis, Chest Pain, Chest Pain at Rest , Chest Pain with Activity, Claudication, Diaphoresis, Dyspnea, Dyspnea on Exertion, Edema, Irregular Heart Rhythm, Pain Radiating to Arm/Neck/Jaw, Leg Edema, Leg Ulcers, Lightheadedness, Orthopnea, Palpitations, Paroxysmal Nocturnal Dyspnea, Pedal Edema, Radiating Pain, Rapid Heart Rate, Slow Heart Rate, Syncope, Other - Respiratory Respiratory: absent: As Per HPI, Cough, Dyspnea, Hemoptysis, Dyspnea on Exertion , Wheezing, Snoring, Stridor, Pain on Inspiration, Chest Congestion, Excessive Mucous Production, Change in Mucous Color, Pain with Coughing, Other - Gastrointestinal Gastrointestinal: Constipation, Nausea, Vomiting - Genitourinary Genitourinary: absent: As Per HPI, Change in Urinary Stream, Difficulty Urinating, Dysuria, Flank Pain, Hematuria, Pyuria, Nocturia, Urinary Incontinence, Urinary Frequency, Urinary Hesitance, Urinary Urgency, Voiding Freq/Small Amts, Freq UTI, Hx Renal/Bladder Calculi, Hx /Renal Surgery, Bladder Distension, Other - Reproductive: Female Reproductive:Female: Post Menopausal - Menstruation Menstruation: Post Menopausal - Musculoskeletal Musculoskeletal: Arthralgias, Back Pain, Limited Range of Motion, Numbness, Radiating Pain into Limb, Tingling - Integumentary Integumentary: absent: As Per HPI, Acne, Alopecia, Bleeding Lesions, Change in Hair, Change in Nails, Change in Pigmentation, Changing Lesions, Dry Skin, Erythema, Furuncle, Hirsutism, Lesions, New Lesions, Non-Healing Lesions, Photosensitivity, Pruritus, Rash, Skin Pain, Skin Ulcer, Sores, Striae, Swelling , Unusual Bruising, Wounds, Jaundice, Other - Neurological Neurological: absent: As Per HPI, Abnormal Gait, Abnormal Hearing, Abnormal Movements, Abnormal Speech, Behavioral Changes, Burning Sensations, Confusion, Convulsions, Disequilibrium, Dizziness, Numbness, Focal Weakness, Frequent Falls , Headaches, Lack of Coordination, Loss of Vision, Memory Loss, Paresthesias, Radicular Pain, Restless Legs, Sensory Deficit, Syncope, Tingling, Tremor, Vertigo, Weakness, Other Visual Disturbances, Other - Psychiatric Psychiatric: Anxiety - Endocrine Endocrine: absent: As Per HPI, Change in Body Appearance, Change in Libido, Cold Intolorance, Deepening of Voice, Excessive Sweating, Fatigue, Flushing, Heat Intolorance, Increase in Ring/Shoe/Hat Size, Palpitations, Polydipsia, Polyphagia, Polyuria, Other - Hematologic/Lymphatic Hematologic: absent: As Per HPI, Easy Bleeding, Easy Bruising, Lymphadenopathy, Other Past Patient History - Infectious Disease Hx of Infectious Diseases: None - Past Medical History & Family History Past Medical History?: Yes - Past Social History Smoking Status: Never Smoked - CARDIAC Hx Hypertension: No - PULMONARY Hx Asthma: Yes - NEUROLOGICAL Hx Seizures: No - HEENT Hx HEENT Problems: No - RENAL Hx Chronic Kidney Disease: No - ENDOCRINE/METABOLIC Hx Hypothyroidism: Yes - HEMATOLOGICAL/ONCOLOGICAL Hx Human Immunodeficiency Virus (HIV): No - INTEGUMENTARY Hx Dermatological Problems: No - MUSCULOSKELETAL/RHEUMATOLOGICAL Hx Arthritis: Yes (NECK AND BACK) - GASTROINTESTINAL Hx Gastritis: Yes - GENITOURINARY/GYNECOLOGICAL Hx Sexually Transmitted Disorders: No - PSYCHIATRIC Hx Anxiety: Yes Hx Depression: Yes Hx Substance Use: No - SURGICAL HISTORY Hx Surgeries: Yes Hx Musculoskeletal Surgery: Yes (2 CERVICAL LUMBAR RECONSTRUCTION) Hx Orthopedic Surgery: Yes (RIGHT ROTATER CUFF SHOULDER; RUBI. CARPAL WILMER) - ANESTHESIA Hx Anesthesia: Yes Hx Anesthesia Reactions: No Hx Malignant Hyperthermia: No Meds Allergies/Adverse Reactions: Allergies Allergy/AdvReac Type Severity Reaction Status Date / Time pregabalin [From Lyrica] Allergy SWELLING Verified 02/23/17 14:54 - Medications Medications: Current Medications Clonidine HCl (Catapres) 0.1 mg PO BID [facility] Last Admin: 02/27/17 09:38 Dose: 0.1 mg Cyclobenzaprine HCl (Flexeril) 10 mg PO TID [facility] Last Admin: 02/27/17 13:18 Dose: 10 mg Diazepam (Valium) 10 mg PO Q8H PRN PRN Reason: Anxiety Last Admin: 02/27/17 10:35 Dose: 10 mg Docusate Sodium (Colace) 100 mg PO BID [facility] Last Admin: 02/27/17 09:38 Dose: 100 mg Enoxaparin Sodium (Lovenox) 40 mg SC DAILY [facility] Last Admin: 02/27/17 09:37 Dose: 40 mg Hydroxyzine HCl (Atarax) 25 mg PO Q6 PRN PRN Reason: Agitation Sodium Chloride (Sodium Chloride 0.9%) 1,000 mls @ 75 mls/hr IV .[id number] [facility] Last Admin: 02/27/17 13:22 Dose: 75 mls/hr Ondansetron HCl (Zofran Inj) 4 mg IVP Q6 PRN PRN Reason: Nausea/Vomiting Last Admin: 02/24/17 16:07 Dose: 4 mg Oxycodone HCl (Oxycodone Immediate Release Tab) 15 mg PO Q6 PRN PRN Reason: Pain, moderate (4-7) Last Admin: 02/27/17 13:18 Dose: 15 mg Pantoprazole Sodium (Protonix Ec Tab) 40 mg PO DAILY [facility] Last Admin: 02/27/17 09:41 Dose: Not Given Potassium Chloride (K-Dur 20 Meq Er Tab) 40 meq PO DAILY [facility] Last Admin: 02/27/17 10:35 Dose: 40 meq Prochlorperazine (Compazine) 10 mg PO TID [facility] Last Admin: 02/27/17 13:18 Dose: 10 mg Quetiapine Fumarate (Seroquel) 100 mg PO HS [facility] Last Admin: 02/26/17 21:18 Dose: 100 mg Physical Exam - Constitutional Appears: No Acute Distress - Head Exam Head Exam: ATRAUMATIC, NORMAL INSPECTION, NORMOCEPHALIC - Eye Exam Eye Exam: EOMI, Normal appearance, PERRL Pupil Exam: NORMAL ACCOMODATION, PERRL - ENT Exam ENT Exam: Mucous Membranes Moist, Normal Exam - Neck Exam Neck exam: Positive for: Full Rom, Normal Inspection - Respiratory Exam Respiratory Exam: Clear to Auscultation Bilateral, NORMAL BREATHING PATTERN - Cardiovascular Exam Cardiovascular Exam: REGULAR RHYTHM, +S1, +S2 - GI/Abdominal Exam GI & Abdominal Exam: Normal Bowel Sounds, Soft - Rectal Exam Rectal Exam: Deferred - Extremities Exam Extremities exam: Positive for: normal inspection - Back Exam Back exam: CVA tenderness (L), CVA tenderness (R), NORMAL INSPECTION, vertebral tenderness - Neurological Exam Neurological exam: Abnormal Gait, Alert, CN II-XII Intact, Oriented x3 - Psychiatric Exam Psychiatric exam: Normal Affect, Normal Mood - Skin Skin Exam: Dry, Intact, Normal Color, Warm Results - Vital Signs Recent Vital Signs: Last Vital Signs Temp 97.5 F L 02/27/17 08:44 Pulse 60 02/27/17 08:44 Resp 20 02/27/17 08:44 BP 119/60 02/27/17 08:44 Pulse Ox 97 02/27/17 08:44 - Labs Result Diagrams: 02/27/17 06:37 02/27/17 06:37 Labs: Laboratory Results - last 24 hr 02/27/17 02/27/17 06:37 06:37 WBC 5.4 RBC 4.14 Hgb 12.5 Hct 36.7 MCV 88.6 MCH 30.2 MCHC 34.1 RDW 13.0 Plt Count 162 MPV 8.1 Neut % (Auto) 48.9 L Lymph % (Auto) 39.8 Mitchell % (Auto) 8.0 Eos % (Auto) 2.7 Baso % (Auto) 0.6 Neut # 2.6 Lymph # 2.1 Mitchell # 0.4 Eos # 0.1 Baso # 0.0 Sodium 138 Potassium 3.5 L Chloride 101 Carbon Dioxide 30 Anion Gap 11 BUN 11 Creatinine 0.8 Est GFR ( Amer) > 60 Est GFR (Non-Af Amer) > 60 Random Glucose 91 Calcium 8.4 L Phosphorus 3.2 Magnesium 1.7 Total Bilirubin 0.9 AST 22 ALT 32 Alkaline Phosphatase 48 Total Protein 5.9 L Albumin 3.2 L Globulin 2.7 Albumin/Globulin Ratio 1.2 Assessment & Plan - Assessment and Plan (Free Text) Assessment: Palliative consult Code status Full Code, there is no advance directive on chart, PPS40% I reviewed medical records, all diagnostic studies, examined and interviewed patient in the bed. Patient is alert, oriented X 3 in no acute distress. Breath sounds with out added sounds, denies cough, RR regular. O2Sat 97 % RA. HR 60, rhythm regular, no murmur. Abdomen soft, distant boel sounds, reports constipation, on bowel regimen. Reports lower back pain, radiating down to left foot. Pain is described as deep, numb pain at lower back 10/10 at its worse, and tingling and burning sensation of the feet. Patient reports dealing with the pain for long time and significantly decreased quality of life. Her goal is to be comfortable enough and be able to function as she did in the past before the pain began. Patient has experience with Fentanyl patch, MS Contin and Dilaudid for pain control. Morphine and Dilaudid gave her side effects of nausea and some " weird" feeling to her head. Fentanyl patch did not stay in place despite taping it down and patient was having episodes of unwanted opioid withdrawal. Patient also reports having a poor appetite ever since post surgeries. She says , she eats only to live, but does not enjoy it. We discussed options of skilled nursing pain management with least possibility of adverse reaction and being affordable for mule tender management. Patient agreed .Plan was shared with Doctor Mychal. Impression * patient has been dealing with chronic lower back pain * Lower back pain is radiating to LEs causing sensation of pins, needle and burning * Patient is not opioid naive as she had taken them for long time * The medical Mariuanna regimen fail due to financial issues * Patient had adverse reactions to Morphine and Dilaudid and also found Fentanyl patch not to be reliable as it was falling off often * Patient's goal is to be pain free and functional Suggestion * Would discontinue Oxycodone IR 15 mg Q 6 hr PRN * Disconinue Flexeril 10 mg TID * Decrease Valium 10 mg to Valium 5 mg PO Q 8 hr PRN pain * Start Oxycontin 30 mg po BID * Start Percocet 5/325 2 tb PO Q 4 hr breaktrough pain * Neurontin 100 mg TID * Monitor for constipation * Fallow up at home with pain management office Thank you for consulting Palliative care
[2017-02-27] MEDS ORDERED: Oxycodone/Acetaminophen 5/325 mg Tab PO PRN (16:53)
[2017-02-27] MEDS: Oxycodone/Acetaminophen 5/325 mg Tab PO PRN (17:45)
[2017-02-27] MEDS: oxyCODONE 20 mg ER Tab (oxyCONTIN) PO SCH (21:48)
[2017-02-28] MEDS: Sodium Chloride 0.9% 1,000 ML IV SCH ×2 (02:55→05:10)
[2017-02-28] MEDS: Oxycodone/Acetaminophen 5/325 mg Tab PO PRN ×2 (06:50→14:10)
[2017-02-28] MEDS ORDERED: POLYETHYLENE GLYCOL 3350 17 GM/Dose PACKET PO ONE (08:00)
[2017-02-28 08:07] VITALS: BP 127/51; PULSE 63; TEMP 97.8; O2SAT 97
[2017-02-28 08:35] LABS: BASO % 0.9 % (0.0-2.0); EOS # 0.2 K/uL (0.0-0.7); HEMOGLOBIN 12.9 g/dL (11.0-16.0); LYMPH % 37.9 % (20.0-40.0); MEAN CELL VOLUME 89.2 fL (81.0-99.0); MEAN CORPUSCULAR HEMOGLOBIN 30.4 pg (27.0-31.0); MEAN CORPUSCULAR HGB CONC 34.1 g/dL (33.0-37.0); MEAN PLATELET VOLUME 8.2 fL (7.2-11.7); MONO # 0.4 K/uL (0.0-0.8); NEUT # 2.7 K/uL (1.8-7.0); NEUT % 51.2 % (50.0-75.0); RBC 4.26 Mil/uL (3.80-5.20); WHITE BLOOD COUNT 5.2 K/uL (4.8-10.8)
[2017-02-28 09:08] LABS: ALBUMIN 3.5 g/dL (3.5-5.0)
[2017-02-28 09:11] LABS: ALB/GLOB RATIO 1.3 (1.0-2.1); AST/SGOT 29 U/L (14-36); BLOOD UREA NITROGEN 10 mg/dL (7-17); GFR AFRICAN-AMERICAN > 60; GFR NON-AFRICAN AMERICAN > 60
[2017-02-28 09:12] LABS: ALT/SGPT 34 U/L (9-52); CALCIUM 8.6 mg/dl (8.6-10.4); MAGNESIUM 1.9 mg/dL (1.6-2.3)
[2017-02-28] MEDS: Pantoprazole 40 mg EC Tab PO SCH (11:17)
[2017-02-28] MEDS: Enoxaparin 40 mg Syringe SC SCH (11:18)
[2017-02-28] MEDS: oxyCODONE 20 mg ER Tab (oxyCONTIN) PO SCH (11:18)
[2017-02-28] MEDS ORDERED: Pneumococcal 23-Valent Vaccine IM ONE (13:27)
--- NOTE | 2017-02-28 18:10 | CP.PCM.DIS ---
Provider - Provider Date of Admission: 02/23/17 15:57 Attending physician: Wallace Cao Jr, MD Primary care physician: Dr. Cao Consults: Pain management/Palliative Care: Nida Romero Time Spent in preparation of Discharge (in minutes): 40 Diagnosis - Discharge Diagnosis (1) Chronic pain Status: Chronic Comment: see hospital course (2) Opioid dependence with withdrawal Status: Chronic Comment: see hospital course for further detail. Pain MGMT/Palliative consult to Nida Romero. DC with 5 day supply of pain regimen, pt has appointment on Monday, March [address] Claire, pain specialist. Hospital Course - Lab Results Lab Results: Most Recent Lab Values WBC 5.2 K/uL (4.8-10.8) 02/28/17 08:23 RBC 4.26 Mil/uL (3.80-5.20) 02/28/17 08:23 Hgb 12.9 g/dL (11.0-16.0) 02/28/17 08:23 Hct 38.0 % (34.0-47.0) 02/28/17 08:23 MCV 89.2 fL (81.0-99.0) 02/28/17 08:23 MCH 30.4 pg (27.0-31.0) 02/28/17 08:23 MCHC 34.1 g/dL (33.0-37.0) 02/28/17 08:23 RDW 13.0 % (11.5-14.5) 02/28/17 08:23 Plt Count 173 K/uL (130-400) 02/28/17 08:23 MPV 8.2 fL (7.2-11.7) 02/28/17 08:23 Neut % (Auto) 51.2 % (50.0-75.0) 02/28/17 08:23 Lymph % (Auto) 37.9 % (20.0-40.0) 02/28/17 08:23 [place] % (Auto) 7.0 % (0.0-10.0) 02/28/17 08:23 Eos % (Auto) 3.0 % (0.0-4.0) 02/28/17 08:23 Baso % (Auto) 0.9 % (0.0-2.0) 02/28/17 08:23 Neut # 2.7 K/uL (1.8-7.0) 02/28/17 08:23 Lymph # 2.0 K/uL (1.0-4.3) 02/28/17 08:23 [place] # 0.4 K/uL (0.0-0.8) 02/28/17 08:23 Eos # 0.2 K/uL (0.0-0.7) 02/28/17 08:23 Baso # 0.0 K/uL (0.0-0.2) 02/28/17 08:23 Sodium 144 mmol/L (132-148) 02/28/17 08:23 Potassium 3.8 mmol/L (3.6-5.2) 02/28/17 08:23 Chloride 102 mmol/L (98-107) 02/28/17 08:23 Carbon Dioxide 31 mmol/L (22-30) H 02/28/17 08:23 Anion Gap 15 (10-20) 02/28/17 08:23 BUN 10 mg/dL (7-17) 02/28/17 08:23 Creatinine 0.8 MG/DL (0.7-1.2) 02/28/17 08:23 Est GFR ( Amer) > 60 02/28/17 08:23 Est GFR (Non-Af Amer) > 60 02/28/17 08:23 Random Glucose 87 mg/dL (65-105) 02/28/17 08:23 Calcium 8.6 mg/dl (8.6-10.4) 02/28/17 08:23 Phosphorus 3.5 mg/dL (2.5-4.5) 02/28/17 08:23 Magnesium 1.9 mg/dL (1.6-2.3) 02/28/17 08:23 Total Bilirubin 0.8 mg/dL (0.2-1.3) 02/28/17 08:23 AST 29 U/L (14-36) 02/28/17 08:23 ALT 34 U/L (9-52) 02/28/17 08:23 Alkaline Phosphatase 51 U/L (38-126) 02/28/17 08:23 Total Protein 6.2 g/dL (6.3-8.3) L 02/28/17 08:23 Albumin 3.5 g/dL (3.5-5.0) 02/28/17 08:23 Globulin 2.8 gm/dL (2.2-3.9) 02/28/17 08:23 Albumin/Globulin Ratio 1.3 (1.0-2.1) 02/28/17 08:23 Urine Color [place] (YELLOW) 02/23/17 16:26 Urine Clarity Hazy (Clear) 02/23/17 16:26 Urine pH 5.0 (5.0-8.0) 02/23/17 16:26 Ur Specific [place] 1.029 (1.003-1.030) 02/23/17 16:26 Urine Protein 1+ mg/dL (NEGATIVE) H 02/23/17 16:26 Urine Glucose (UA) Normal mg/dL (Normal) 02/23/17 16:26 Urine Ketones 1+ mg/dL (NEGATIVE) H 02/23/17 16:26 Urine Blood Negative (NEGATIVE) 02/23/17 16:26 Urine Nitrate Negative (NEGATIVE) 02/23/17 16:26 Urine Bilirubin Negative (NEGATIVE) 02/23/17 16:26 Urine Urobilinogen Normal mg/dL (0.2-1.0) 02/23/17 16:26 Ur Leukocyte Esterase Neg Man[place]et/uL (Negative) 02/23/17 16:26 Urine WBC (Auto) 2 /hpf (0-5) 02/23/17 16:26 Urine RBC (Auto) 1 /hpf (0-3) 02/23/17 16:26 Ur Squamous Epith Cells 4 /hpf (0-5) 02/23/17 16:26 Ur Transition Epith Cell 1 /hpf (0-3) 02/23/17 16:26 Urine Bacteria Rare (<OCC) 02/23/17 16:26 Urine Opiates Screen Negative (NEGATIVE) 02/23/17 16:26 Urine Methadone Screen Negative (NEGATIVE) 02/23/17 16:26 Ur Barbiturates Screen Negative (NEGATIVE) 02/23/17 16:26 Ur Phencyclidine Scrn Negative (NEGATIVE) 02/23/17 16:26 Ur Amphetamines Screen Negative (NEGATIVE) 02/23/17 16:26 U Benzodiazepines Scrn Negative (NEGATIVE) 02/23/17 16:26 U Oth Cocaine Metabols Negative (NEGATIVE) 02/23/17 16:26 U Cannabinoids Screen Positive (NEGATIVE) 02/23/17 16:26 - Hospital Course Hospital Course: On admission: Patient is a 52 year old female with PMHx of chronic pain who presents with complaint of intractable back pain. The patient experienced a fall several years ago and had to undergo multiple spinal surgeries in 2010 and 2011. Since then the patient has been on opiates as outpatient for management of her pain. The patient tried to stop taking her pain medication and applied for cannabis program which she started 3 weeks ago. At the same time the patient discontinued oral narcotics. While using the cannabis the patient states that her pain was very well controlled; however, the patient was unable to continue taking the cannabis due to its expensive cost ($250 per week.) The patient has been off all pain medication for the past week and is complaining of unmanageable pain which has disabled her. Patient states that her pain is located in her back and neck. The back pain is rated 10/10, starts at the left low back and radiates down her left leg. The neck pain is rated 10/10, starts at the base of her neck and radiates down her thoracic spine and anteriorly to her chest. The patient describes the pain as sharp and tingling. Patient has been taking Flexeril at home but states that the pain became unbearable today so she came to the ED. She currently complains of headache, dizziness, decreased appetite and diarrhea for 3 weeks since she stopped the opiates. Patient ambulates with assisting devices at home (cane and walker) at baseline. She has a homemaker who has been helping her. The patient denies fever, chills, nausea, vomiting, abdominal pain, chest pain, palpitations, tremors, cough, sick contacts, numbness, focal weakness, change in vision, and incontinence. PMD: [place] PMHx: Chronic back and neck pain Surgical Hx: Lap cholecystectomy 08/2016, Reconstruction of L-spine (2010), C- spine fusion of C2-6 (2011), Right rotator cuff repair, carpal tunnel sx bilateral wrists Family Hx: Mom- DM, Dad- CAD () Social Hx: Denies EtOH use, denies tobacco use, denies illicit drug use. Lives alone with homemaker to help. On disability but worked as security business analyst previously. Allergies: Lyrica (swelling) Hospital course: Patient presented to the ED on 02/23/17 with complaints of chills, back and groin pain with associated nausea and vomiting. . Patient was admitted to Internal Medicine on 02/23/17 for chronic intractable back and neck pain and suspected opioid use disorder. On 02/23/17 patient was treated for pain with dilaudid, while oxycodone was given PRN. Patient was given valium for anxiety. Clonidine, zofran and IVF NS were started for opioid use disorder, and the patient was monitored for withdrawal symptoms. On 02/24/17, Psychiatrist Dr. Dorota Cordero was consulted for evaluation and treatment recommendations regarding opioid use disorder. Dilaudid was discontinued. Patient was started on compazine for pain. Monitoring for withdrawal symptoms, as well as treatment with oxycodone, valium, clonidine, zofran, and IVF NS were continued. Patient was also treated for PMH of bipolar disorder with seroquel, with medication management continued by Psychiatry. On 02/25/17 patient reported improved pain, flexeril was started for pain, atarax was given for agitation. On 02/25, PT was consulted for pain and advised patient would benefit from rolling walker and TCU services. On 02/27/17 Palliative Care nurse Nida Escamilla was consulted for long-term pain management regimen. Flexeril and immediate release oxycodone were discontinued. Patient was started on neurontin and extended release oxycodone, with percocet given PRN for breakthrough pain. Valium was decreased to 5mg PRN. Further recommendations included monitoring for constipation and outpatient followup with pain management. - Date & Time of H&P Date of H&P: 02/23/17 Time of H&P: 16:22 Discharge Exam - Additional Findings Additional findings: - Constitutional Appears: Non-toxic, No Acute Distress - Head Exam Head Exam: ATRAUMATIC, NORMOCEPHALIC - Eye Exam Eye Exam: EOMI, Normal appearance Pupil Exam: PERRL - ENT Exam ENT Exam: Mucous Membranes Moist - Neck Exam Neck Exam: Full ROM - Respiratory Exam Respiratory Exam: Clear to Ausculation Bilateral, NORMAL BREATHING PATTERN. absent: Rales, Rhonchi, Wheezes - Cardiovascular Exam Cardiovascular Exam: REGULAR RHYTHM, +S1, +S2 - GI/Abdominal Exam GI & Abdominal Exam: Soft, Normal Bowel Sounds. absent: Tenderness - Extremities Exam Extremities Exam: Normal Inspection Additional comments: shooting pain from sacrum to legs, not worse with palpation - Back Exam Back Exam: paraspinal tenderness Additional comments: pain worse in lumbar region, no saddle anesthesia, signs of incontinence surgical scars noted at c-spine fusion sites - Neurological Exam Neurological Exam: Alert, Awake, Oriented x3 - Psychiatric Exam Psychiatric exam: Anxious - Skin Skin Exam: Normal Color, Warm Discharge Plan - Discharge Medications Prescriptions: diaZEpam [Valium] 5 mg PO Q8H PRN #15 tab PRN Reason: Anxiety Gabapentin [Neurontin] 100 mg PO TID #15 cap oxyCODONE [oxyCONTIN Extended Release Tab] 30 mg PO Q12 #10 oxyCODONE/Acetaminophen [Percocet 5/325 mg Tab] 2 tab PO Q4H PRN #30 tab PRN Reason: Pain, Moderate (4-7) - Follow Up Plan Condition: GUARDED Disposition: HOME/ ROUTINE Instructions: Oxycodone/Acetaminophen (By mouth), Diazepam (By mouth), Gabapentin (By mouth), Chronic Pain (DC), Depression (DC), Opioid Dependence (DC ), Anxiety (DC) Additional Instructions: Patient stable for discharge per Dr. Cao. Patient may resume her home medications. She has been prescribed the following medications by pain management: Neurontin, Oxycontin, Percocet, and Valium. Patient is make an appointment with their PMD, within one week of discharge for follow-up. It is also recommended she follow up with her new pain management physician, Dr. Benítez regarding treatment of her intractable pain. An appointment was scheduled with Dr. Benítez on Monday, March 06. She was given 5 day supply of pain meds to get her to her appointment time. Dr. Georgina Claire can be reached at [phone]. Her office is in [place]. She is advised to return to the emergency department if symptoms return or worsen. These instructions were given to the pt in Persian. Patient expressed verbal understanding of these instructions. Prescribed medications: Valium 5mg by mouth every 8hrs as needed (Dispense # 15) Neurontin 100mg, by mouth, every 8 hours (dispense # 15) Oxycontin 30mg by mouth, every 12 hours (dispense #10) Percocet 5/325mg by mouth every 4 hours as needed for breakthrough pain ( dispense # 30) Home PT prescription provided
== END 2017-02-28 14:30 | disposition home or self-care (01) | DRG 745 ==
LOC: C.ER 14:32 → C.9E 15:57 → C.3T 17:17
PROVIDERS: ADMIT Internal Medicine; ATTEND Internal Medicine
PROC: GZHZZZZ Group Psychotherapy (ICD-10-PCS; principal; 2017-02-24)
PROC: GZ58ZZZ Individual Psychotherapy, Cognitive-Behavioral (ICD-10-PCS; 2017-02-24)
PROC: GZ56ZZZ Individual Psychotherapy, Supportive (ICD-10-PCS; 2017-02-24)
DX: F11.23 Opioid dependence with withdrawal (principal); F31.32 Bipolar disorder, current episode depressed, moderate; M47.9 Spondylosis, unspecified; F41.9 Anxiety disorder, unspecified; J45.909 Unspecified asthma, uncomplicated; E11.9 Type 2 diabetes mellitus without complications; E03.9 Hypothyroidism, unspecified; S39.012A Strain of muscle, fascia and tendon of lower back, initial encounter; G89.29 Other chronic pain; M54.5 Low back pain; Z51.5 Encounter for palliative care; Z98.1 Arthrodesis status

== ENCOUNTER 2017-04-21 14:10 | Emergency (ER) | payer MEDICAID ==
[2017-04-21 14:11] VITALS: BMI 26.9
[2017-04-21 14:15] VITALS: RESP 18; O2SAT 98
[2017-04-21] MEDS ORDERED: Naproxen 550 mg Tab PO STA (14:59)
[2017-04-21] MEDS ORDERED: Naproxen 550 mg Tab PO ONE (15:20)
--- NOTE | 2017-04-21 15:54 | RAD ---
PROCEDURE: Radiographs of the Chest and Right Ribs. HISTORY: lat rib pain s/p fall 2 days ago COMPARISON: Chest x-ray 01/28/2013 TECHNIQUE: Frontal radiograph of the chest and multiple oblique radiographs of the right ribs were obtained. FINDINGS: RIGHT RIBS: No fracture or focal lesion visualized. LUNGS: Clear. PLEURA: No pneumothorax or pleural fluid. CARDIOVASCULAR: Normal sized heart. No pulmonary vascular congestion. OTHER FINDINGS: None. IMPRESSION: Unremarkable radiographs of the chest and right ribs. No right rib fracture.
--- NOTE | 2017-04-21 16:09 | C.PDOC ---
History Of Present Illness 52 year old female with a history of chronic back pain presents after falling while attempting to reach for something in car just prior to arrival. Patient states she stepped on the rubber part of a step and it tore causing her to slide down and hit the right side of body on something. She notes pain in right lateral ribs exacerbated by cough and movement. She is currently on pain management and notes she is still in pain despite medications. - HPI Time Seen by Provider: 04/21/17 14:34 Chief Complaint (Nursing): Trauma History Per: Patient History/Exam Limitations: no limitations Onset/Duration Of Symptoms: Hrs Injury Occurred (Timing): Hours Ago: Recent travel outside of the [place]: No Past Medical History Reviewed: Historical Data, Nursing Documentation, Vital Signs Vital Signs: Last Vital Signs Temp 98.1 F 04/21/17 16:30 Pulse 60 04/21/17 16:30 Resp 18 04/21/17 16:30 BP 124/72 04/21/17 16:30 Pulse Ox 98 04/21/17 16:30 - Medical History PMH: Anxiety, Arthritis (NECK AND BACK), Asthma, Back Problems, Bronchitis, Depression, Diabetes, Fractures, Gastritis, Hyperthyroidism (per pt controlled) , Hypothyroidism - [facility] Procedures COLONOSCOPY (05/07/15) ESOPHAGOGASTRODUODENOSCOPY [EGD] W/CLOSED BIOPSY (04/16/15) GROUP PSYCHOTHERAPY (02/23/17) INDIVID PSYCHOTHERAP NEC (10/28/14) INDIVIDUAL PSYCHOTHERAPY, COGNITIVE-BEHAVIORAL (02/23/17) INDIVIDUAL PSYCHOTHERAPY, SUPPORTIVE (02/23/17) OCCUPATIONAL THERAPY (01/24/13) OTHER GROUP THERAPY (10/28/14) PHYSICAL THERAPY NEC (04/27/15) PSYCHIAT DRUG THERAP NEC (10/28/14) RESECTION OF GALLBLADDER, PERCUTANEOUS ENDOSCOPIC APPROACH (09/11/16) Family History: States: Unknown Family Hx - Social History Hx Tobacco Use: No Hx Alcohol Use: No Hx Substance Use: No - Immunization History Hx Tetanus Toxoid Vaccination: No Hx Influenza Vaccination: No Hx Pneumococcal Vaccination: No Review Of Systems Constitutional: Negative for: Fever, Chills Cardiovascular: Negative for: Chest Pain Respiratory: Negative for: Shortness of Breath Gastrointestinal: Negative for: Nausea, Vomiting Genitourinary: Negative for: Dysuria, Incontinence Musculoskeletal: Positive for: Back Pain Neurological: Negative for: Weakness, Numbness Physical Exam - Physical Exam Appears: Non-toxic, In Acute Distress (Patient appears uncomfortable on exam) Skin: Warm, Dry, No Ecchymosis Head: Atraumatic Eye(s): bilateral: Normal Inspection Neck: No Step Off Deformity, Supple, Other (no crepitus ) Chest: Symmetrical, No Deformity, Tenderness (to lateral right ribs, no swelling. ), No Ecchymosis Cardiovascular: Rhythm Regular, No Murmur Respiratory: Normal Breath Sounds (good lung sounds in all kolb ), No Rales, No Rhonchi, No Wheezing Gastrointestinal/Abdominal: Soft, No Tenderness, No Distention, No Guarding, No Rebound Neurological/Psych: Oriented x3, Normal Speech, Normal Cognition, Normal Motor, Normal Sensation ED Course And Treatment O2 Sat by Pulse Oximetry: 98 (room air ) - Other Rad rib X-Ray: Viewed By Me, Read By Radiologist Interpretation: LUNGS: Clear. PLEURA: No pneumothorax or pleural fluid. CARDIOVASCULAR: Normal sized heart. No pulmonary vascular congestion. OTHER FINDINGS: None. IMPRESSION: Unremarkable radiographs of the chest and right ribs. No right rib fracture. Progress Note: Patient was given anaprox and rib X-ray was ordered. Disposition Counseled Patient/Family Regarding: Diagnosis, Need For Followup - Disposition Referrals: Wallace Cao Jr., MD [Medical Doctor] - Disposition: HOME/ ROUTINE Disposition Time: 16:06 Condition: STABLE Additional Instructions: Apply cold compresses to area several times a day. Take 1-2 over the counter Aleve every 12 hours (with food) if your stomach tolerates it. FOllow up with [facility] pain management doctor and Dr Cao. Recommend using Lidoderm patches ( that you have at home)- 12 hours on and 12 hours off. Instructions: Rib Contusion (ED) Forms: [facility] (Moroccan), General Discharge Instructions - Clinical Impression Clinical Impression: Rib pain on right side, Rib sprain - PA / NURSING SUPPORT WORKER / Resident Statement MD/DO has reviewed & agrees with the documentation as recorded. - Scribe Statement The provider has reviewed the documentation as recorded by the Scribe Evelyn Sandoval All medical record entries made by the Scribe were at my direction and personally dictated by me. I have reviewed the chart and agree that the record accurately reflects my personal performance of the history, physical exam, medical decision making, and the department course for this patient. I have also personally directed, reviewed, and agree with the discharge instructions and disposition.
[2017-04-21 16:31] VITALS: BP 124/72; PULSE 60; TEMP 98.1
== END 2017-04-21 16:32 | disposition home or self-care (01) ==
LOC: C.ER 14:10
DX: S23.41XA Sprain of ribs, initial encounter (principal); W17.89XA Other fall from one level to another, initial encounter; R07.81 Pleurodynia

== ENCOUNTER 2017-12-29 10:28 | Emergency (ER) | payer MEDICAID ==
[2017-12-29 10:37] VITALS: BMI 26.6
[2017-12-29 10:43] VITALS: TEMP 98
[2017-12-29] MEDS ORDERED: Albuterol 0.083% Inhal Sol (2.5 mg/3 mL) UD IH STA ×3 (10:54→14:00)
[2017-12-29] MEDS ORDERED: Albuterol 0.083% Inhal Sol (2.5 mg/3 mL) UD ONE ×3 (11:13→14:28)
[2017-12-29 11:26] LABS: BASO # 0.2 K/uL (0.0-0.2); BASO % 2.2 % (0.0-2.0); EOS # 0.3 K/uL (0.0-0.7); HEMOGLOBIN 14.9 g/dL (11.0-16.0); LYMPH # 1.3 K/uL (1.0-4.3); LYMPH % 14.2 % (20.0-40.0); MEAN CELL VOLUME 89.5 fL (81.0-99.0); MEAN CORPUSCULAR HEMOGLOBIN 31.7 pg (27.0-31.0); MEAN CORPUSCULAR HGB CONC 35.5 g/dL (33.0-37.0); MEAN PLATELET VOLUME 8.9 fL (7.2-11.7); MONO # 0.5 K/uL (0.0-0.8); MONO % 5.6 % (0.0-10.0); NEUT # 6.9 K/uL (1.8-7.0); RBC 4.68 Mil/uL (3.80-5.20); RED CELL DISTRIBUTION WIDTH 12.9 % (11.5-14.5); WHITE BLOOD COUNT 9.2 K/uL (4.8-10.8)
[2017-12-29] MEDS ORDERED: Albuterol-Ipratrop 3 mg / 0.5 (3 ml) UD INH STA (12:08)
--- NOTE | 2017-12-29 12:12 | RAD ---
PROCEDURE: CHEST RADIOGRAPH, 1 VIEW HISTORY: SOB COMPARISON: 04/21/2017. FINDINGS: LUNGS: Clear. PLEURA: No pneumothorax or pleural fluid seen. CARDIOVASCULAR: Normal. OSSEOUS STRUCTURES: No significant abnormalities. VISUALIZED UPPER ABDOMEN: Normal. OTHER FINDINGS: None. IMPRESSION: No active disease. No acute/significant interval changes.
[2017-12-29 12:17] LABS: ALB/GLOB RATIO 1.1 (1.0-2.1); ALBUMIN 4.3 g/dL (3.5-5.0); ALT/SGPT 23 U/L (9-52); AST/SGOT 36 U/L (14-36); BLOOD UREA NITROGEN 16 mg/dL (7-17); GFR AFRICAN-AMERICAN > 60; GFR NON-AFRICAN AMERICAN > 60
[2017-12-29 12:24] LABS: B-TYPE NATRIURETIC PEPTIDE 82.4 pg/mL (0-900); CK-MB 1.69 ng/mL (0.0-3.38)
--- NOTE | 2017-12-29 12:28 | C.PDOC ---
History Of Present Illness Patient is a 52 y/o female who presents to the ED BIBA for shortness of breath and wheezing since Monday 12/25. Patient admits to nonproductive cough and Hx of asthma that worsens with seasonal change. Denies any fever, chest pain, or abdominal pain. Patient was given a nebulizer treatment in the field. No other physical complaints at this time. Time Seen by Provider: 12/29/17 10:30 Chief Complaint (Nursing): Shortness Of Breath History Per: Patient History/Exam Limitations: no limitations Onset/Duration Of Symptoms: Days (since Monday 12/25) Current Symptoms Are (Timing): Still Present Associated Symptoms: Productive Cough Recent travel outside of the [place]: No Past Medical History Reviewed: Historical Data, Nursing Documentation, Vital Signs Vital Signs: Last Vital Signs Temp 98.0 F 12/29/17 10:36 Pulse 107 H 12/29/17 14:48 Resp 18 12/29/17 16:14 BP 131/56 L 12/29/17 14:48 Pulse Ox 97 12/29/17 16:24 - Medical History PMH: Anxiety, Arthritis (NECK AND BACK), Asthma, Back Problems, Bronchitis, Depression, Diabetes, Fractures, Gastritis, Hyperthyroidism (per pt controlled) , Hypothyroidism Denies: Hepatitis, HIV, HTN, Chronic Kidney Disease, Seizures, Sexually Transmitted Disease Other Surgeries: colonoscopy and cholecystectomy - [facility] Procedures COLONOSCOPY (05/07/15) ESOPHAGOGASTRODUODENOSCOPY [EGD] W/CLOSED BIOPSY (04/16/15) GROUP PSYCHOTHERAPY (02/23/17) INDIVID PSYCHOTHERAP NEC (10/28/14) INDIVIDUAL PSYCHOTHERAPY, COGNITIVE-BEHAVIORAL (02/23/17) INDIVIDUAL PSYCHOTHERAPY, SUPPORTIVE (02/23/17) OCCUPATIONAL THERAPY (01/24/13) OTHER GROUP THERAPY (10/28/14) PHYSICAL THERAPY NEC (04/27/15) PSYCHIAT DRUG THERAP NEC (10/28/14) RESECTION OF GALLBLADDER, PERCUTANEOUS ENDOSCOPIC APPROACH (09/11/16) Family History: States: Unknown Family Hx - Social History Hx Tobacco Use: No Hx Alcohol Use: No Hx Substance Use: No - Immunization History Hx Tetanus Toxoid Vaccination: Yes Hx Influenza Vaccination: Yes Hx Pneumococcal Vaccination: Yes Review Of Systems Except As Marked, All Systems Reviewed And Found Negative. Respiratory: Positive for: Cough (non productive), Shortness of Breath, Wheezing Physical Exam - Physical Exam Appears: Well, Non-toxic Skin: Normal Color, Warm, Dry Head: Atraumatic, Normacephalic Oral Mucosa: Moist Chest: Symmetrical Cardiovascular: Rhythm Regular, No Murmur Respiratory: Normal Breath Sounds, No Rales, No Rhonchi, Wheezing (expiratory wheezing bilaterally ), Other (able to speak in full sentences) Gastrointestinal/Abdominal: Soft, No Tenderness Extremity: Swelling (trace pitting edema of bilateral lower extremities) Neurological/Psych: Oriented x3, Normal Speech, Normal Cognition ED Course And Treatment - Laboratory Results Result Diagrams: 12/29/17 11:19 12/29/17 11:45 ECG: Interpreted By Me, Viewed By Me ECG Rhythm: Sinus Rhythm Interpretation Of ECG: normal axis, no acute st/t wave changes. Rate From EC (bpm) O2 Sat by Pulse Oximetry: 97 Pulse Ox Interpretation: Normal - Other Rad CXR X-Ray: Interpreted by Me, Viewed By Me Interpretation: PROCEDURE: CHEST RADIOGRAPH, 1 VIEW. HISTORY: SOB. COMPARISON: 04/21/2017. FINDINGS: LUNGS: Clear. PLEURA: No pneumothorax or pleural fluid seen. CARDIOVASCULAR: Normal. OSSEOUS STRUCTURES: No significant abnormalities. VISUALIZED UPPER ABDOMEN: Normal. OTHER FINDINGS: None. IMPRESSION: No active disease. No acute/significant interval changes. R wrist X-Ray: Interpreted by Me, Viewed By Me Interpretation: PROCEDURE: Right Wrist Radiographs. . HISTORY: right wrist pain. COMPARISON: None. FINDINGS: BONES: No acute fracture. Corticated triangular ossific density in the expected location of the ulnar styloid process may reflect old ununited fracture fragment. JOINTS: Normal. No dislocation. SOFT TISSUES: Normal. OTHER FINDINGS: None. IMPRESSION: No acute fracture. Progress Note: EKG, CXR, and blood work ordered. Nebulizer treatment and duonebs administered. On re-assessment, patient noted right wrist pain for the last few weeks s/p a fall. Patient was supposed to receieve outpatient XR from Dr. Cao but never followed through; XRs thus performed in ED today for evaluation. On re-eval, patient is resting comfortably and stable for discharge. Discharge instructions given and patient sent home. Disposition Counseled Patient/Family Regarding: Studies Performed, Diagnosis, Need For Followup, Rx Given - Disposition Referrals: Wallace Cao Jr., MD [Medical Doctor] - Disposition: HOME/ ROUTINE Disposition Time: 15:00 Condition: STABLE Additional Instructions: FOLLOW UP WITH YOUR DOCTOR IN 1-2 DAYS USE MEDICATIONS DIRECTED RETURN TO ER IF SYMPTOMS WORSEN Prescriptions: Albuterol 0.5% [Albuterol 0.5% Inhal Tamara (2.5 mg/0.5 ml) UD] 2.5 mg IH Q6 PRN # 1 bottle PRN Reason: Wheezing Albuterol HFA [Ventolin HFA 90 mcg/actuation (8 g)] 0.09 mg IH Q4 PRN #1 puff PRN Reason: Wheezing predniSONE [predniSONE Tab] 40 mg PO DAILY #8 tab Instructions: Asthma, Adult (DC) Forms: [facility] ([place] Korean) Print Language: CYMRO - Clinical Impression Clinical Impression: Asthma exacerbation - Scribe Statement The provider has reviewed the documentation as recorded by the Scribe Shannon Martinez All medical record entries made by the Scribe were at my direction and personally dictated by me. I have reviewed the chart and agree that the record accurately reflects my personal performance of the history, physical exam, medical decision making, and the department course for this patient. I have also personally directed, reviewed, and agree with the discharge instructions and disposition.
[2017-12-29] MEDS ORDERED: Albuterol-Ipratrop 3 mg / 0.5 (3 ml) UD ONE (12:33)
[2017-12-29 14:48] VITALS: BP 131/56; PULSE 107; RESP 18
[2017-12-29 14:56] VITALS: O2SAT 97
--- NOTE | 2017-12-29 15:40 | RAD ---
PROCEDURE: Right Wrist Radiographs. HISTORY: right wrist pain COMPARISON: None. FINDINGS: BONES: No acute fracture. Corticated triangular ossific density in the expected location of the ulnar styloid process may reflect old ununited fracture fragment. JOINTS: Normal. No dislocation. SOFT TISSUES: Normal. OTHER FINDINGS: None. IMPRESSION: No acute fracture.
== END 2017-12-29 16:18 | disposition home or self-care (01) ==
LOC: C.ER 10:28
DX: J45.901 Unspecified asthma with (acute) exacerbation (principal); E11.9 Type 2 diabetes mellitus without complications
CPT/HCPCS: 71045; 73110; 80053; 83880; 84484; 85025; 87040; 94150; 96374; 99285; J2930